=== PATIENT | female | born 1965 | race Hispanic/Latino ===

== ENCOUNTER 2017-01-29 18:50 | Emergency (ER) | payer BC ==
[~2017-01-29] VITALS: Ht 162.6 cm; Wt 85.1 kg
[2017-01-29] MEDS ORDERED: PERCOCET 5/31 TABLET PO (21:13)
[2017-01-29 21:41] VITALS: BP 156/87
== END 2017-01-29 21:43 | disposition home or self-care (01) ==
LOC: EME 18:50
PROC: 2W38X1Z Immobilization of Right Upper Extremity using Splint (ICD-10-PCS; principal; 2017-01-29)
DX: S52.001A Unspecified fracture of upper end of right ulna, initial encounter for closed fracture (principal); V00.111A Fall from in-line roller-skates, initial encounter; Y93.51 Activity, roller skating (inline) and skateboarding
CPT/HCPCS: 73080; 99281; 99284